=== PATIENT | female | born 1980 | race Caucasian/White ===

== ENCOUNTER 2024-06-13 23:32 | Inpatient (IN) | payer SELFPAY ==
--- NOTE | ~2024-06-13 | XR_ITS ---
Left Knee Technique: AP, lateral, and oblique views were obtained. Clinical History: Laceration, dog bite Findings: No fracture or dislocation is seen. Bipartite patella noted. Joint spaces are preserved wit hout degenerative or erosive change. There is soft tissue laceration the posterior aspect of the knee . No joint effusion is seen. Impression: Soft tissue laceration of the posterior aspect of the knee. Bipartite patella. Reviewed, dictated and finalized at location M. 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 Bipartite patella.
--- NOTE | ~2024-06-13 | CT_ITS ---
EXAMINATION: CT LE LT w con DATE: 06/15/2024 08:46 INDICATION: Left lower limb laceration with infection. TECHNIQUE: Computed tomography (CT) of the left lower limb was performed with 100 mL Omnipaque 350 in travenous contrast. Automated exposure control and iterative reconstruction technique were employed. The dose-length product was 718.91 mGy-cm. COMPARISON: Left knee radiographs 06/14/2024 FINDINGS: Bone alignment is normal. No fracture. 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 No knee joint effusion. There is a laceration posterior to the knee. T here is edema of the surrounding subcutaneous fat. No drainable abscess. IMPRESSION: 1. Laceration posterior to the knee with associated soft tissue edema. No well-defined abscess. Reviewed, dictated and finalized at location A. IN ARCHITECT IMPRESSION: 1. Laceration posterior to the knee with associated soft tissue edema. No well- defined abscess.
[2024-06-13 23:35] VITALS: BP 155/91; PULSE 84; RESP 16; TEMP 36.3; O2SAT 100
[2024-06-14] MEDS: AMPICILLIN SULB 3 GM/NS 100 ML 3 GM/100 ML VIAL IVPB ×3 (03:20→17:03)
[2024-06-14] MEDS: TETANUS,DIPHTHERIA,AC PERTUSSIS ADULT (0.5 ML) BOOSTRIX IM (03:21)
--- NOTE | 2024-06-14 03:26 | ED_ITS ---
HPI - General Adult General Chief complaint: Animal Bite Stated complaint: dog bite to back of L leg Time Seen by Provider: 06/14/24 02:49 History of Present Illness HPI narrative: Patient is a 43-year-old female presents emergency department chief complaint of dog bite to the left leg. Patient reports several days ago she was bitten by a dog and reports he has laceration to the back of her Related Data Allergies Allergy/AdvReac Type Severity Reaction Status Date / Time No Known Allergies Allergy Verified 06/13/24 23:34 Review of Systems Review of Systems: A 10 system review of systems was completed on the patient and is negative except for what is stated in the HPI. Nursing and ancillary documentation was reviewed. Exam Narrative: GENERAL: Well-appearing, well-nourished, and in no acute distress. HEAD: Normocephalic, atraumatic. EYES: PERRLA and EOMI. ENT: Nares clear, no rhinorrhea or epistaxis. Mucous membranes moist. NECK: Supple. CHEST: Clear to auscultation. No respiratory distress. HEART: Regular rate and rhythm. No murmur heard. Normal peripheral pulses. ABDOMEN: Soft, nontender, nondistended, normal active bowel sounds. EXTREMITIES: Normal range of motion. No edema. There is a large laceration to the left calf with erythema surrounding the wound appears to be infected SKIN: Warm, dry, no rash. NEURO: No focal deficits. Alert and oriented x3. PSYCH: Normal mood and affect. Course Vital Signs Vital signs: Vital Signs Temperature 36.3 C L 06/13/24 23:35 Pulse Rate 84 06/13/24 23:35 Respiratory Rate 16 06/13/24 23:35 Blood Pressure 155/91 H 06/13/24 23:35 Pulse Oximetry 100 06/13/24 23:35 Oxygen Delivery Room Air 06/13/24 23:35 Temperature 36.3 C L 06/13/24 23:35 Pulse Rate 84 06/13/24 23:35 Respiratory Rate 16 06/13/24 23:35 Blood Pressure 155/91 H 06/13/24 23:35 Pulse Oximetry 100 06/13/24 23:35 Oxygen Delivery Room Air 06/13/24 23:35 Medical Decision Making [facility] Narrative Medical decision making narrative: Plain film x-rays showed no evidence of fracture, CBC was not significantly elevated given the wound does appear to be significantly infected the patient was started empirically on Unasyn to provide coverage for canine bite. Case was discussed with the hospitalist the patient will be admitted for further care Vital Signs Vital Signs: Vital Signs Temperature 36.3 C L 06/13/24 23:35 Pulse Rate 84 06/13/24 23:35 Respiratory Rate 16 06/13/24 23:35 Blood Pressure 155/91 H 06/13/24 23:35 Pulse Oximetry 100 06/13/24 23:35 Oxygen Delivery Room Air 06/13/24 23:35 Temperature 36.3 C L 06/13/24 23:35 Pulse Rate 84 06/13/24 23:35 Respiratory Rate 16 06/13/24 23:35 Blood Pressure 155/91 H 06/13/24 23:35 Pulse Oximetry 100 06/13/24 23:35 Oxygen Delivery Room Air 06/13/24 23:35 Lab Data 06/14/24 03:22 06/14/24 03:22 Labs: Lab Results 06/14/24 Range/Units 03:22 WBC 7.5 (4.5-10.0) K/mm3 RBC 3.69 L (4.2-5.4) M/mm3 Hgb 11.1 L (12.0-15.0) g/dL Hct 33.7 L (37.0-47.0) % MCV 91.3 (80-100) fl MCH 30.1 (26-34) pg MCHC 32.9 (32-36) g/dl RDW 13.0 (11.5-14.5) % Plt Count 357 (150-375) k/mm3 MPV 8.5 (7.4-10.4) fl Immature Gran % (Auto) 0.3 (0-0.5) % Neut % (Auto) 52.4 (45.5-73.1) % Lymph % (Auto) 36.3 (18.3-44.2) % [place] % (Auto) 6.9 (2.6-8.5) % Eos % (Auto) 3.7 (0-4.4) % Baso % (Auto) 0.4 (0.2-1.2) % Lymph # (Auto) 2.73 (0.9-3.2) K/mm3 [place] # (Auto) 0.5 (0.1-0.6) K/mm3 Eos # (Auto) 0.3 (0-0.3) K/mm3 Baso # (Auto) 0.0 (0.0-0.1) K/mm3 Abs Immat Gran (auto) 0.02 (0.00-0.031) K/mm3 Absolute Neuts (auto) 3.9 (1.3-6.7) K/mm3 Absolute Nucleated RBC 0.000 (0.0-0.012) K/mm3 Nucleated RBC % 0.0 (0.0-0.2) % Sodium 137 (137-145) mmol/L Potassium 3.6 (3.4-5.0) mmol/L Chloride 106 (98-107) mmol/L Carbon Dioxide 29 (22-30) mmol/L Anion Gap 2 L (4-12) mmol/L BUN 8 (7-17) mg/dL Creatinine 0.40 L (0.7-1.0) mg/dL Estim Creat Clear Calc 143 ml/min Estimated GFR > 60 (59 - ) Glucose 113 H (65-110) mg/dL Lactic Acid 0.6 L (0.7-2.0) mmol/L Calcium 8.9 (8.4-10.2) mg/dL Total Bilirubin 0.5 (0.2-1.3) mg/dL AST 46 H (14-36) U/L ALT 40 H (6-35) U/L Alkaline Phosphatase 76 (38-126) U/L Total Protein 7.0 (6.3-8.2) g/dL Albumin 3.5 (3.5-5.1) g/dL Discharge Plan Discharge Clinical Impression: Dog bite of left lower leg with infection, History of homeless Patient Disposition: Still a Patient Condition: Stable Follow-up/Referrals: PHYSICIAN,CARROT BUNCHER [Primary Care Provider] - Time of Disposition: 04:11
[2024-06-14 03:32] LABS: Basophils Percent Auto 0.4 % (0.2-1.2); Eosinophils Absolute Auto 0.3 K/mm3 (0-0.3); Eosinophils Percent Auto 3.7 % (0-4.4); Hematocrit 33.7 % (37.0-47.0); Hemoglobin 11.1 g/dL (12.0-15.0); Immature Granulocyte Absolute 0.02 K/mm3 (0.00-0.031); Immature Granulocyte Percent A 0.3 % (0-0.5); Lymphocytes Absolute Auto 2.73 K/mm3 (0.9-3.2); Lymphocytes Percent Auto 36.3 % (18.3-44.2); Mean Corpuscular HGB Conc 32.9 g/dl (32-36); Mean Corpuscular Hemoglobin 30.1 pg (26-34); Mean Corpuscular Volume 91.3 fl (80-100); Mean Platelet Volume 8.5 fl (7.4-10.4); Monocytes Absolute Auto 0.5 K/mm3 (0.1-0.6); Monocytes Percent Auto 6.9 % (2.6-8.5); Neutrophils Absolute Auto 3.9 K/mm3 (1.3-6.7); Neutrophils Percent Auto 52.4 % (45.5-73.1); Platelet Count Result 357 k/mm3 (150-375); Red Blood Count 3.69 M/mm3 (4.2-5.4); White Blood Count 7.5 K/mm3 (4.5-10.0)
[2024-06-14 03:51] LABS: Alanine Aminotransferase 40 U/L (6-35); Albumin Level 3.5 g/dL (3.5-5.1); Alkaline Phosphatase 76 U/L (38-126); Anion Gap 2 mmol/L (4-12); Aspartate Amino Transferase 46 U/L (14-36); Bilirubin,Total 0.5 mg/dL (0.2-1.3); Blood Urea Nitrogen 8 mg/dL (7-17); Calcium 8.9 mg/dL (8.4-10.2); Carbon Dioxide 29 mmol/L (22-30); Chloride 106 mmol/L (98-107); Estimated CRCL calculation 143 ml/min; Estimated Glomerular Filt Rate > 60; Glucose 113 mg/dL (65-110); Potassium 3.6 mmol/L (3.4-5.0); Sodium 137 mmol/L (137-145)
[2024-06-14 03:52] LABS: Lactic Acid Reflex 0.6 mmol/L (0.7-2.0)
[2024-06-14 04:22] VITALS: BP 142/81; PULSE 80; RESP 14; O2SAT 97
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
[2024-06-14] MEDS: ACETAMINOPHEN 325 MG TABLET 650 MG PO ×2 (05:42→22:48)
--- NOTE | 2024-06-14 05:43 | PC.NURSE ---
Patient is homeless and states that she is supposed to take medication for certain health conditions but I just can't right now ; patient states she was told that she had cancer from some test, but I don't know . Admission report provided to [facility].
[2024-06-14 06:00] VITALS: BP 120/68; PULSE 85; RESP 18; TEMP 36.6; O2SAT 100
[2024-06-14] MEDS: SODIUM CHLORIDE 0.9% IV 1,000 ML 100 ML IV CONT ×2 (06:25→21:24)
[2024-06-14] MEDS: KETOROLAC 15 MG/ML VIAL (*BKC) IV PUSH ×3 (06:25→17:01)
[2024-06-14] MEDS: VANCOMYCIN 1,500 MG/NS 500 ML 1,500 MG/500 ML BAG 250 MG IVPB ×2 (07:22→21:29)
[2024-06-14 08:12] VITALS: O2SAT 96
[2024-06-14] MEDS: HEPARIN SODIUM 5,000 UNITS/ML VIAL 5000 UNITS SUB-Q ×2 (08:16→21:32)
--- NOTE | 2024-06-14 11:30 | P.PNIM_ITS ---
Progress Note: A&P Assessment and Plan (1) Dog bite of left lower leg with infection: Code(s): S81.852A - Open bite, left lower leg, initial encounter; L08.9 - Local infection of the skin and subcutaneous tissue, unspecified; W54.0XXA - Bitten by dog, initial encounter Status: Acute Assessment and Plan: * Ampicillin 3 gram IVPB q 6 and Vancomycin 1,500 mg IVPB q 12 * NS @ 100 ml/hr * Surgery consult. CT of left LE with contrast ordered and NPO after Midnight. * Monitor labs * Blood culture no growth to date. * TDAP booster (2) Cellulitis of left lower extremity: Code(s): L03.116 - Cellulitis of left lower limb Status: Acute Assessment and Plan: * Ampicillin 3 gram IVPB q 6 and Vancomycin 1,500 mg IVPB q 12 * NS @ 100 ml/hr * Surgery consult. CT of left LE with contrast ordered and NPO after Midnight. * Monitor labs (3) Homeless: Code(s): Z59.00 - Homelessness unspecified Status: Acute Assessment and Plan: * Care coordination consult. Plan Acute and principal conditions 1. Left lower extremity cellulitis, post-dog bite 2. Dog bite 3. Elevated liver enzymes IVFs; Unasyn, Vancomycin Analgesia Tetanus booster General surgery consult Monitor liver function; Avoid hepatotoxins Chronic and stable conditions 1. Polysubstance dependence 2. Nicotine dependence. 3. Alcohol dependence 4. Hx of depression w/Anxiety. Poor compliance due to social issues Code status. Full Nutrition. Regular diet VTE prophylaxis. SCDs; JULIANO Subjective Date/time seen: 06/14/24 11:30 Interval history: Patient reports pain in left calf is a 5 , constant, and throbbing. Patient denies headache, dizziness, nausea, or vomiting. Review of Systems Review of Systems: All systems reviewed & are unremarkable except as noted in HPI and below Exam Const: General: no acute distress and uncomfortable Eyes: Sclera: sclerae normal Resp: Effort & Inspection: normal respiratory effort Auscultation: clear to auscultation bilaterally Cardio: Rate: regular rate Rhythm: regular rhythm GI: GI Palp: Yes Soft to palpation Auscultation: normal bowel sounds Skin: Wounds: wounds noted (left calf. ) Other: See wound note for measurements. Surgery description. Cloudy scant purulent drainage on dressing. Neuro: Speech: normal speech Extrem: Other: Grossly normal except for left calf cellulitis Psych: Mental Status: mental status grossly normal Affect: normal affect Objective Data Vital Signs Vital Signs: Vital Signs - 24 hr 06/13/24 23:35 06/14/24 04:22 06/14/24 06:00 Temperature 97.3 F L 97.9 F Pulse Rate 84 80 85 Respiratory Rate 16 14 18 Blood Pressure 155/91 H 142/81 H 120/68 Pulse Oximetry 100 97 100 Oxygen Delivery Room Air 06/14/24 08:12 06/14/24 08:00 Temperature Pulse Rate Respiratory Rate Blood Pressure Pulse Oximetry 96 Oxygen Delivery Room Air Room Air Intake/Output Intake/Output: Intake & Output 06/11/24 06/12/24 06/13/24 06/14/24 23:59 23:59 23:59 23:59 Intake Total 318 Balance 318 Meds/Results Medications: Active Medications Generic Name Dose Route Start Last Admin Trade Name Freq PRN Reason Stop Dose Admin Acetaminophen 650 mg 06/14/24 04:09 06/14/24 05:42 Acetaminophen 325 Mg Tablet PO 650 mg Q4H PRN Administration Mild Pain (1-3) or Fever Heparin Sodium (Porcine) 5,000 units 06/14/24 09:00 06/14/24 08:16 Heparin Sodium 5,000 Units/Ml Vial SUB-Q 5,000 units Q12HR JULIANO Administration Ampicillin Sodium/Sulbactam Sodium 3 gm in 100 mls @ 200 mls/hr 06/14/24 12:00 Unasyn 3 Gm/Ns 100 Ml IVPB Q6HR JULIANO Sodium Chloride 1,000 mls @ 100 mls/hr 06/14/24 05:25 06/14/24 06:25 Normal Saline Iv IV CONT 100 mls/hr .Q10H JULIANO Administration Vancomycin HCl 1,500 mg in 500 mls @ 250 mls/hr 06/14/24 07:00 06/14/24 07:22 Vancomycin 1,500 Mg/Ns 500 Ml IVPB 250 mls/hr Q12H JULIANO Administration Ketorolac Tromethamine 15 mg 06/14/24 06:00 06/14/24 06:25 Ketorolac 15 Mg/Ml Vial (*Bkc) IV PUSH 06/14/24 18:01 15 mg Q6HR JULIANO Administration Radiology Results: ITS Impressions Knee X-Ray 06/14/24 07:41 Impression: Soft tissue laceration of the posterior aspect of the knee. Bipartite patella. Labs Labs: Laboratory Results - last 24 hr 06/14/24 03:22 WBC 7.5 RBC 3.69 L Hgb 11.1 L Hct 33.7 L MCV 91.3 MCH 30.1 MCHC 32.9 RDW 13.0 Plt Count 357 MPV 8.5 Immature Gran % (Auto) 0.3 Neut % (Auto) 52.4 Lymph % (Auto) 36.3 [place] % (Auto) 6.9 Eos % (Auto) 3.7 Baso % (Auto) 0.4 Lymph # (Auto) 2.73 [place] # (Auto) 0.5 Eos # (Auto) 0.3 Baso # (Auto) 0.0 Abs Immat Gran (auto) 0.02 Absolute Neuts (auto) 3.9 Absolute Nucleated RBC 0.000 Nucleated RBC % 0.0 Sodium 137 Potassium 3.6 Chloride 106 Carbon Dioxide 29 Anion Gap 2 L BUN 8 Creatinine 0.40 L Estim Creat Clear Calc 143 Estimated GFR > 60 Glucose 113 H Lactic Acid 0.6 L Calcium 8.9 Total Bilirubin 0.5 AST 46 H ALT 40 H Alkaline Phosphatase 76 Total Protein 7.0 Albumin 3.5 Quality VTE Prophylaxis VTE prophylaxis: mechanical ordered and pharmacologic ordered
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
[2024-06-14 14:00] VITALS: BP 122/69; PULSE 78; RESP 18; TEMP 36.4; O2SAT 99
[2024-06-14 20:00] VITALS: O2SAT 99
[2024-06-14 20:46] LABS: Glucose Point of Care 106 mg/dl (65-105)
[2024-06-14 21:29] VITALS: BP 123/74; PULSE 72; RESP 14; TEMP 36.7; O2SAT 100
[2024-06-15] MEDS: AMPICILLIN SULB 3 GM/NS 100 ML 3 GM/100 ML VIAL IVPB ×5 (01:12→23:40)
[2024-06-15] MEDS: ACETAMINOPHEN 325 MG TABLET 650 MG PO ×4 (03:20→21:29)
[2024-06-15 05:22] VITALS: BP 124/73; PULSE 62; RESP 13; TEMP 36.8; O2SAT 100
[2024-06-15 07:37] LABS: Basophils Percent Auto 0.5 % (0.2-1.2); Eosinophils Absolute Auto 0.2 K/mm3 (0-0.3); Eosinophils Percent Auto 3.2 % (0-4.4); Hematocrit 33.4 % (37.0-47.0); Hemoglobin 10.3 g/dL (12.0-15.0); Immature Granulocyte Absolute 0.02 K/mm3 (0.00-0.031); Immature Granulocyte Percent A 0.3 % (0-0.5); Lymphocytes Absolute Auto 2.35 K/mm3 (0.9-3.2); Lymphocytes Percent Auto 31.5 % (18.3-44.2); Mean Corpuscular HGB Conc 30.8 g/dl (32-36); Mean Corpuscular Hemoglobin 29.1 pg (26-34); Mean Corpuscular Volume 94.4 fl (80-100); Monocytes Absolute Auto 0.7 K/mm3 (0.1-0.6); Monocytes Percent Auto 9.4 % (2.6-8.5); Neutrophils Absolute Auto 4.1 K/mm3 (1.3-6.7); Neutrophils Percent Auto 55.1 % (45.5-73.1); Platelet Count Result 308 k/mm3 (150-375); Red Blood Count 3.54 M/mm3 (4.2-5.4); Red Cell Distribution Width 13.1 % (11.5-14.5); White Blood Count 7.5 K/mm3 (4.5-10.0)
[2024-06-15 08:43] LABS: Alanine Aminotransferase 33 U/L (6-35); Albumin Level 2.9 g/dL (3.5-5.1); Alkaline Phosphatase 67 U/L (38-126); Anion Gap 2 mmol/L (4-12); Aspartate Amino Transferase 39 U/L (14-36); Bilirubin,Total 0.5 mg/dL (0.2-1.3); Blood Urea Nitrogen 8 mg/dL (7-17); Calcium 8.1 mg/dL (8.4-10.2); Carbon Dioxide 26 mmol/L (22-30); Chloride 109 mmol/L (98-107); Estimated CRCL calculation 118 ml/min; Estimated Glomerular Filt Rate > 60; Glucose 105 mg/dL (65-110); Sodium 137 mmol/L (137-145)
[2024-06-15] MEDS: VANCOMYCIN 1,500 MG/NS 500 ML 1,500 MG/500 ML BAG 250 MG IVPB ×2 (09:14→21:21)
[2024-06-15] MEDS: HEPARIN SODIUM 5,000 UNITS/ML VIAL 5000 UNITS SUB-Q ×2 (09:14→21:25)
--- NOTE | 2024-06-15 12:14 | P.PNIM_ITS ---
Progress Note: A&P Assessment and Plan (1) Dog bite of left lower leg with infection: Code(s): S81.852A - Open bite, left lower leg, initial encounter; L08.9 - Local infection of the skin and subcutaneous tissue, unspecified; W54.0XXA - Bitten by dog, initial encounter Status: Acute Assessment and Plan: * Ampicillin 3 gram IVPB q 6 and Vancomycin 1,500 mg IVPB q 12 * NS @ 100 ml/hr * Surgery consult. * CT of left LE with contrast showed Laceration posterior to the knee with associated soft tissue edema. No well-defined abscess. * Surgery cleaned and packed wound. * Monitor labs * Blood culture no growth to date. * TDAP booster (2) Cellulitis of left lower extremity: Code(s): L03.116 - Cellulitis of left lower limb Status: Acute Assessment and Plan: * Ampicillin 3 gram IVPB q 6 and Vancomycin 1,500 mg IVPB q 12 * NS @ 100 ml/hr * Surgery consulted. * CT of left LE with contrast ordered Laceration posterior to the knee with associated soft tissue edema. No well-defined abscess. * Monitor labs (3) Homeless: Code(s): Z59.00 - Homelessness unspecified Status: Acute Assessment and Plan: * Care coordination consult. Plan Acute and principal conditions 1. Left lower extremity cellulitis, post-dog bite 2. Dog bite 3. Elevated liver enzymes IVFs; Unasyn, Vancomycin Analgesia Tetanus booster General surgery consult Monitor liver function; Avoid hepatotoxins Chronic and stable conditions 1. Polysubstance dependence 2. Nicotine dependence. 3. Alcohol dependence 4. Hx of depression w/Anxiety. Poor compliance due to social issues Code status. Full Nutrition. Regular diet VTE prophylaxis. SCDs; JULIANO Subjective Date/time seen: 06/15/24 12:14 Interval history: Patient reports pain in left calf is a 9 , constant, and aching. Patient reports that she considering going to a womens intermediate. Patient denies chest pain, palpitations, headache, dizziness, nausea, or vomiting. Patient denies thoughts of wanting to harm herself or harm others. Review of Systems Review of Systems: All systems reviewed & are unremarkable except as noted in HPI and below Exam Const: General: no acute distress and uncomfortable Eyes: Sclera: sclerae normal Resp: Effort & Inspection: normal respiratory effort Auscultation: clear to auscultation bilaterally Cardio: Rate: regular rate Rhythm: regular rhythm GI: GI Palp: Yes Soft to palpation Auscultation: normal bowel sounds Skin: Wounds: wounds noted (Dressing intact to left calf. Surgery packed and placed dressing. ) Neuro: Speech: normal speech Extrem: Other: Grossly normal except for left calf cellulitis Psych: Mental Status: mental status grossly normal Other: Tearful when talked about family and unsure whert they are at. Objective Data Vital Signs Vital Signs: Vital Signs - 24 hr 06/14/24 14:00 06/14/24 21:29 06/14/24 20:00 Temperature 97.6 F 98.0 F Pulse Rate 78 72 Respiratory Rate 18 14 Blood Pressure 122/69 123/74 Pulse Oximetry 99 100 Oxygen Delivery Room Air 06/14/24 20:00 06/15/24 05:22 06/15/24 08:00 Temperature 98.2 F Pulse Rate 62 Respiratory Rate 13 Blood Pressure 124/73 Pulse Oximetry 99 100 Oxygen Delivery Room Air Room Air Intake/Output Intake/Output: Intake & Output 06/12/24 06/13/24 06/14/24 06/15/24 23:59 23:59 23:59 23:59 Intake Total 3526 1050 Balance 3526 1050 Meds/Results Medications: Active Medications Generic Name Dose Route Start Last Admin Trade Name Freq PRN Reason Stop Dose Admin Acetaminophen 650 mg 06/14/24 04:09 06/15/24 10:22 Acetaminophen 325 Mg Tablet PO 650 mg Q4H PRN Administration Mild Pain (1-3) or Fever Heparin Sodium (Porcine) 5,000 units 06/14/24 09:00 06/15/24 09:14 Heparin Sodium 5,000 Units/Ml Vial SUB-Q 5,000 units Q12HR JULIANO Administration Ampicillin Sodium/Sulbactam Sodium 3 gm in 100 mls @ 200 mls/hr 06/14/24 12:00 06/15/24 06:41 Unasyn 3 Gm/Ns 100 Ml IVPB Infused Q6HR JULIANO Infusion Sodium Chloride 1,000 mls @ 100 mls/hr 06/14/24 05:25 06/14/24 21:24 Normal Saline Iv IV CONT 100 mls/hr .Q10H JULIANO Administration Vancomycin HCl 1,500 mg in 500 mls @ 250 mls/hr 06/14/24 07:00 06/15/24 09:14 Vancomycin 1,500 Mg/Ns 500 Ml IVPB 250 mls/hr Q12H JULIANO Administration Radiology Results: ITS Impressions Knee X-Ray 06/14/24 07:41 Impression: Soft tissue laceration of the posterior aspect of the knee. Bipartite patella. Lower Extremity CT 06/15/24 08:47 IMPRESSION: 1. Laceration posterior to the knee with associated soft tissue edema. No well- defined abscess. Labs Labs: Laboratory Results - last 24 hr 06/14/24 06/15/24 20:42 06:55 WBC 7.5 RBC 3.54 L Hgb 10.3 L Hct 33.4 L MCV 94.4 MCH 29.1 MCHC 30.8 L RDW 13.1 Plt Count 308 MPV 9.0 Immature Gran % (Auto) 0.3 Neut % (Auto) 55.1 Lymph % (Auto) 31.5 [place] % (Auto) 9.4 H Eos % (Auto) 3.2 Baso % (Auto) 0.5 Lymph # (Auto) 2.35 [place] # (Auto) 0.7 H Eos # (Auto) 0.2 Baso # (Auto) 0.0 Abs Immat Gran (auto) 0.02 Absolute Neuts (auto) 4.1 Absolute Nucleated RBC 0.000 Nucleated RBC % 0.0 Sodium 137 Potassium 4.0 Chloride 109 H Carbon Dioxide 26 Anion Gap 2 L BUN 8 Creatinine 0.50 L Estim Creat Clear Calc 118 Estimated GFR > 60 Glucose 105 POC Capillary Glucose 106 H Calcium 8.1 L Total Bilirubin 0.5 AST 39 H ALT 33 Alkaline Phosphatase 67 Total Protein 6.0 L Albumin 2.9 L Quality VTE Prophylaxis VTE prophylaxis: mechanical ordered and pharmacologic ordered
[2024-06-15 14:00] VITALS: BP 134/73; PULSE 90; RESP 18; TEMP 36.1; O2SAT 100
--- NOTE | 2024-06-15 14:06 | PM.PNGS ---
Progress Note: A&P Assessment and Plan (1) Dog bite of left lower leg with infection: Code(s): S81.852A - Open bite, left lower leg, initial encounter; L08.9 - Local infection of the skin and subcutaneous tissue, unspecified; W54.0XXA - Bitten by dog, initial encounter Status: Acute Assessment and Plan: Patient was bit by a dog nearly a week ago and now has an open wound in the popliteal fossa of her left knee with soft tissue changes of cellulitis and infection. CT scan of LLE showed no evidence of a defined abscess that would require surgical intervention. We would recommend to continue local wound care with iodoform packing dressing changes daily and IV antibiotics. Given her social situation of homelessness and lack of social support, wound care as an outpatient may become an issue. She may need an extended stay until it was clear that she can care for her own wounds. We will sign off at this time. Please call with any surgical questions or concerns. (2) Polysubstance abuse: Code(s): F19.10 - Other psychoactive substance abuse, uncomplicated Status: Chronic (3) Tobacco dependence: Code(s): F17.200 - Nicotine dependence, unspecified, uncomplicated Status: Chronic (4) History of homeless: Code(s): Z78.9 - Other specified health status Status: Acute Plan I have discussed the patient's case and plan of care with Dr. Arizmendi. Subjective Subjective Date/Time Seen: 06/15/24 14:06 Patient reports: no new complaints, feels better, pain is less and afebrile Interval history: Patient feels like her left leg swelling and pain has improved. No acute events overnight. No changes. CT today negative for abscess. I tried questioning the patient about her personal life and if she would have any family or friends around to help her with packing dressing changes. She could not answer this question directly and first said no I don't have anyone. Then I asked where her parents are and she answered I need to get a mechanical repair worker. I asked if she had a place that she was staying recently and she couldn't answer this either. She replied by saying everyone wants my information and is using it against me. She could not directly answer me with any questions in regards to if she has any social support to help her with dressing changes/etc. I spoke with nursing who stated that care coordination is recommending a psych consult and they were speaking with the Hospitalist about this. Exam Const: General: comfortable and no acute distress Orientation/consciousness: patient oriented x3 Skin: Other: There is a linear wound in the popliteal fossa of the left leg with thick yellow drainage on the mepilex dressing and still about 5 cm of tunneling down towards the calf. CT did not show a deeper abscess. Surrounding erythema and swelling is improving. I packed the wound with quarter-inch iodoform and covered with 4 x 4 gauze and a Kerlix roll gauze. Objective Data Vital Signs Vital Signs: Vital Signs - 24 hr 06/14/24 21:29 06/14/24 20:00 06/14/24 20:00 Temperature 98.0 F Pulse Rate 72 Respiratory Rate 14 Blood Pressure 123/74 Pulse Oximetry 100 99 Oxygen Delivery Room Air Room Air 06/15/24 05:22 06/15/24 08:00 Temperature 98.2 F Pulse Rate 62 Respiratory Rate 13 Blood Pressure 124/73 Pulse Oximetry 100 Oxygen Delivery Room Air Intake/Output Intake/Output: Intake & Output 06/12/24 06/13/24 06/14/24 06/15/24 23:59 23:59 23:59 23:59 Intake Total 3526 1050 Balance 3526 1050 Meds/Results Medications: Active Medications Generic Name Dose Route Start Last Admin Trade Name Freq PRN Reason Stop Dose Admin Acetaminophen 650 mg 06/14/24 04:09 06/15/24 10:22 Acetaminophen 325 Mg Tablet PO 650 mg Q4H PRN Administration Mild Pain (1-3) or Fever Heparin Sodium (Porcine) 5,000 units 06/14/24 09:00 06/15/24 09:14 Heparin Sodium 5,000 Units/Ml Vial SUB-Q 5,000 units Q12HR JULIANO Administration Ampicillin Sodium/Sulbactam Sodium 3 gm in 100 mls @ 200 mls/hr 06/14/24 12:00 06/15/24 12:29 Unasyn 3 Gm/Ns 100 Ml IVPB 200 mls/hr Q6HR JULIANO Administration Sodium Chloride 1,000 mls @ 100 mls/hr 06/14/24 05:25 06/14/24 21:24 Normal Saline Iv IV CONT 100 mls/hr .Q10H JULIANO Administration Vancomycin HCl 1,500 mg in 500 mls @ 250 mls/hr 06/14/24 07:00 06/15/24 09:14 Vancomycin 1,500 Mg/Ns 500 Ml IVPB 250 mls/hr Q12H JULIANO Administration Radiology Results: ITS Impressions Knee X-Ray 06/14/24 07:41 Impression: Soft tissue laceration of the posterior aspect of the knee. Bipartite patella. Lower Extremity CT 06/15/24 08:47 IMPRESSION: 1. Laceration posterior to the knee with associated soft tissue edema. No well-defined abscess. Labs Labs: Laboratory Results - last 24 hr 06/14/24 06/15/24 20:42 06:55 WBC 7.5 RBC 3.54 L Hgb 10.3 L Hct 33.4 L MCV 94.4 MCH 29.1 MCHC 30.8 L RDW 13.1 Plt Count 308 MPV 9.0 Immature Gran % (Auto) 0.3 Neut % (Auto) 55.1 Lymph % (Auto) 31.5 [place] % (Auto) 9.4 H Eos % (Auto) 3.2 Baso % (Auto) 0.5 Lymph # (Auto) 2.35 [place] # (Auto) 0.7 H Eos # (Auto) 0.2 Baso # (Auto) 0.0 Abs Immat Gran (auto) 0.02 Absolute Neuts (auto) 4.1 Absolute Nucleated RBC 0.000 Nucleated RBC % 0.0 Sodium 137 Potassium 4.0 Chloride 109 H Carbon Dioxide 26 Anion Gap 2 L BUN 8 Creatinine 0.50 L Estim Creat Clear Calc 118 Estimated GFR > 60 Glucose 105 POC Capillary Glucose 106 H Calcium 8.1 L Total Bilirubin 0.5 AST 39 H ALT 33 Alkaline Phosphatase 67 Total Protein 6.0 L Albumin 2.9 L
[2024-06-15] MEDS: SODIUM CHLORIDE 0.9% IV 1,000 ML 100 ML IV CONT ×2 (16:26→18:51)
[2024-06-15 20:54] LABS: Vancomycin Trough 9.8 ug/mL (10.0-20.0)
[2024-06-15 21:25] VITALS: BP 138/67; PULSE 84; RESP 20; TEMP 36.9; O2SAT 100
[2024-06-15] MEDS: KETOROLAC 30 MG/ML VIAL (*BKC) IV PUSH (22:47)
[2024-06-16 04:25] VITALS: BP 141/82; PULSE 76; RESP 20; TEMP 37; O2SAT 100
[2024-06-16] MEDS: AMPICILLIN SULB 3 GM/NS 100 ML 3 GM/100 ML VIAL IVPB ×4 (05:13→23:50)
[2024-06-16] MEDS: ACETAMINOPHEN 325 MG TABLET 650 MG PO ×3 (05:52→21:41)
[2024-06-16 06:07] LABS: Basophils Percent Auto 0.4 % (0.2-1.2); Eosinophils Absolute Auto 0.3 K/mm3 (0-0.3); Eosinophils Percent Auto 3.3 % (0-4.4); Hematocrit 33.8 % (37.0-47.0); Hemoglobin 10.5 g/dL (12.0-15.0); Immature Granulocyte Absolute 0.03 K/mm3 (0.00-0.031); Immature Granulocyte Percent A 0.4 % (0-0.5); Lymphocytes Absolute Auto 2.58 K/mm3 (0.9-3.2); Lymphocytes Percent Auto 33.9 % (18.3-44.2); Mean Corpuscular HGB Conc 31.1 g/dl (32-36); Mean Corpuscular Hemoglobin 29.5 pg (26-34); Mean Corpuscular Volume 94.9 fl (80-100); Mean Platelet Volume 8.6 fl (7.4-10.4); Monocytes Absolute Auto 0.7 K/mm3 (0.1-0.6); Monocytes Percent Auto 8.8 % (2.6-8.5); Neutrophils Absolute Auto 4.1 K/mm3 (1.3-6.7); Neutrophils Percent Auto 53.2 % (45.5-73.1); Platelet Count Result 308 k/mm3 (150-375); Red Blood Count 3.56 M/mm3 (4.2-5.4); Red Cell Distribution Width 12.8 % (11.5-14.5); White Blood Count 7.6 K/mm3 (4.5-10.0)
[2024-06-16 06:31] LABS: Alanine Aminotransferase 34 U/L (6-35); Albumin Level 2.9 g/dL (3.5-5.1); Alkaline Phosphatase 67 U/L (38-126); Anion Gap 0 mmol/L (4-12); Aspartate Amino Transferase 39 U/L (14-36); Bilirubin,Total 0.3 mg/dL (0.2-1.3); Blood Urea Nitrogen 11 mg/dL (7-17); Calcium 8.3 mg/dL (8.4-10.2); Carbon Dioxide 28 mmol/L (22-30); Chloride 107 mmol/L (98-107); Estimated CRCL calculation 118 ml/min; Estimated Glomerular Filt Rate > 60; Glucose 100 mg/dL (65-110); Potassium 4.3 mmol/L (3.4-5.0); Sodium 135 mmol/L (137-145)
[2024-06-16] MEDS: VANCOMYCIN 1,500 MG/NS 500 ML 1,500 MG/500 ML BAG 250 MG IVPB ×2 (08:56→21:38)
[2024-06-16] MEDS: HEPARIN SODIUM 5,000 UNITS/ML VIAL 5000 UNITS SUB-Q ×2 (09:21→21:40)
--- NOTE | 2024-06-16 10:49 | P.PNIM_ITS ---
Progress Note: A&P Assessment and Plan (1) Dog bite of left lower leg with infection: Code(s): S81.852A - Open bite, left lower leg, initial encounter; L08.9 - Local infection of the skin and subcutaneous tissue, unspecified; W54.0XXA - Bitten by dog, initial encounter Status: Acute Assessment and Plan: * Ampicillin 3 gram IVPB q 6 and Vancomycin 1,500 mg IVPB q 12 * NS @ 100 ml/hr * Surgery consulted, no surgical intervention at this time. * CT of left LE with contrast showed Laceration posterior to the knee with associated soft tissue edema. No well-defined abscess. * Dressing changes packed the wound with quarter-inch iodoform and covered with 4 x 4 gauze and a Kerlix roll gauze. * Monitor labs * Blood culture no growth to date. * TDAP booster (2) Cellulitis of left lower extremity: Code(s): L03.116 - Cellulitis of left lower limb Status: Acute Assessment and Plan: * Ampicillin 3 gram IVPB q 6 and Vancomycin 1,500 mg IVPB q 12 * NS @ 100 ml/hr * Surgery consulted. * CT of left LE with contrast ordered Laceration posterior to the knee with associated soft tissue edema. No well-defined abscess. * Monitor labs (3) Homeless: Code(s): Z59.00 - Homelessness unspecified Status: Acute Assessment and Plan: * Care coordination consult. Plan Acute and principal conditions 1. Left lower extremity cellulitis, post-dog bite 2. Dog bite 3. Elevated liver enzymes IVFs; Unasyn, Vancomycin Analgesia Tetanus booster General surgery consult Monitor liver function; Avoid hepatotoxins Chronic and stable conditions 1. Polysubstance dependence 2. Nicotine dependence. 3. Alcohol dependence 4. Hx of depression w/Anxiety. Poor compliance due to social issues Code status. Full Nutrition. Regular diet VTE prophylaxis. SCDs; JULIANO Subjective Date/time seen: 06/16/24 10:49 Interval history: Patient reports pain in left calf is a 9 , constant, and aching. Patient reports that she considering going to a women's snf, patient has phone numbers at bedside to call and set up. Patient denies chest pain, palpitations, headache, dizziness, nausea, or vomiting. Review of Systems Review of Systems: All systems reviewed & are unremarkable except as noted in HPI and below Exam Const: General: no acute distress and uncomfortable Eyes: Sclera: sclerae normal Resp: Effort & Inspection: normal respiratory effort Auscultation: clear to auscultation bilaterally Cardio: Rate: regular rate Rhythm: regular rhythm GI: GI Palp: Yes Soft to palpation Auscultation: normal bowel sounds Skin: Other: Left calf surrounding erythema is improving. Cream colored thick drainage. Neuro: Speech: normal speech Extrem: Other: Grossly normal except for left calf cellulitis Psych: Mental Status: mental status grossly normal Affect: normal affect Objective Data Vital Signs Vital Signs: Vital Signs - 24 hr 06/15/24 14:00 06/15/24 21:25 06/15/24 20:00 Temperature 97.0 F L 98.4 F Pulse Rate 90 84 Respiratory Rate 18 20 Blood Pressure 134/73 138/67 Pulse Oximetry 100 100 Oxygen Delivery Room Air 06/16/24 04:25 Temperature 98.6 F Pulse Rate 76 Respiratory Rate 20 Blood Pressure 141/82 H Pulse Oximetry 100 Oxygen Delivery Intake/Output Intake/Output: Intake & Output 06/13/24 06/14/24 06/15/24 06/16/24 23:59 23:59 23:59 23:59 Intake Total 3526 3751.7 1818 Balance 3526 3751.7 1818 Meds/Results Medications: Active Medications Generic Name Dose Route Start Last Admin Trade Name Freq PRN Reason Stop Dose Admin Acetaminophen 650 mg 06/14/24 04:09 06/16/24 05:52 Acetaminophen 325 Mg Tablet PO 650 mg Q4H PRN Administration Mild Pain (1-3) or Fever Heparin Sodium (Porcine) 5,000 units 06/14/24 09:00 06/16/24 09:21 Heparin Sodium 5,000 Units/Ml Vial SUB-Q 5,000 units Q12HR JULIANO Administration Ampicillin Sodium/Sulbactam Sodium 3 gm in 100 mls @ 200 mls/hr 06/14/24 12:00 06/16/24 05:43 Unasyn 3 Gm/Ns 100 Ml IVPB Infused Q6HR JULIANO Infusion Sodium Chloride 1,000 mls @ 100 mls/hr 06/14/24 05:25 06/15/24 21:25 Normal Saline Iv IV CONT Not Given .Q10H JULIANO Vancomycin HCl 1,500 mg in 500 mls @ 250 mls/hr 06/14/24 07:00 06/16/24 08:56 Vancomycin 1,500 Mg/Ns 500 Ml IVPB 250 mls/hr Q12H JULIANO Administration Radiology Results: ITS Impressions Knee X-Ray 06/14/24 07:41 Impression: Soft tissue laceration of the posterior aspect of the knee. Bipartite patella. Lower Extremity CT 06/15/24 08:47 IMPRESSION: 1. Laceration posterior to the knee with associated soft tissue edema. No well- defined abscess. Labs Labs: Laboratory Results - last 24 hr 06/15/24 06/16/24 19:55 05:54 WBC 7.6 RBC 3.56 L Hgb 10.5 L Hct 33.8 L MCV 94.9 MCH 29.5 MCHC 31.1 L RDW 12.8 Plt Count 308 MPV 8.6 Immature Gran % (Auto) 0.4 Neut % (Auto) 53.2 Lymph % (Auto) 33.9 [place] % (Auto) 8.8 H Eos % (Auto) 3.3 Baso % (Auto) 0.4 Lymph # (Auto) 2.58 [place] # (Auto) 0.7 H Eos # (Auto) 0.3 Baso # (Auto) 0.0 Abs Immat Gran (auto) 0.03 Absolute Neuts (auto) 4.1 Absolute Nucleated RBC 0.000 Nucleated RBC % 0.0 Sodium 135 L Potassium 4.3 Chloride 107 Carbon Dioxide 28 Anion Gap 0 L BUN 11 Creatinine 0.50 L Estim Creat Clear Calc 118 Estimated GFR > 60 Glucose 100 Calcium 8.3 L Total Bilirubin 0.3 AST 39 H ALT 34 Alkaline Phosphatase 67 Total Protein 6.0 L Albumin 2.9 L Vancomycin Trough 9.8 L Quality VTE Prophylaxis VTE prophylaxis: mechanical ordered and pharmacologic ordered
[2024-06-16 14:00] VITALS: BP 129/79; PULSE 70; RESP 20; TEMP 36.4; O2SAT 99
[2024-06-16] MEDS: polyethylene glycoL 3350 17 GM POWD.PACK PO (14:03)
[2024-06-16] MEDS: KETOROLAC 30 MG/ML VIAL (*BKC) IV PUSH (14:06)
[2024-06-16] MEDS: SODIUM CHLORIDE 0.9% IV 1,000 ML 100 ML IV CONT (18:56)
[2024-06-16 20:00] VITALS: PULSE 70; RESP 20; O2SAT 99
[2024-06-16 20:35] LABS: Vancomycin Trough 8.3 ug/mL (10.0-20.0)
[2024-06-16 21:20] VITALS: BP 134/80; PULSE 76; RESP 20; TEMP 36.1; O2SAT 100
[2024-06-17] MEDS: VANCOMYCIN 1,500 MG/NS 500 ML 1,500 MG/500 ML BAG 250 MG IVPB ×2 (04:43→15:45)
[2024-06-17 05:10] VITALS: BP 147/79; PULSE 69; RESP 18; TEMP 36.1; O2SAT 99
[2024-06-17] MEDS: AMPICILLIN SULB 3 GM/NS 100 ML 3 GM/100 ML VIAL IVPB ×4 (06:57→23:00)
[2024-06-17 07:03] LABS: Basophils Percent Auto 0.4 % (0.2-1.2); Eosinophils Absolute Auto 0.3 K/mm3 (0-0.3); Eosinophils Percent Auto 3.6 % (0-4.4); Hematocrit 34.1 % (37.0-47.0); Hemoglobin 10.9 g/dL (12.0-15.0); Immature Granulocyte Absolute 0.03 K/mm3 (0.00-0.031); Immature Granulocyte Percent A 0.4 % (0-0.5); Lymphocytes Absolute Auto 2.08 K/mm3 (0.9-3.2); Lymphocytes Percent Auto 29.8 % (18.3-44.2); Mean Corpuscular Hemoglobin 29.7 pg (26-34); Mean Corpuscular Volume 92.9 fl (80-100); Mean Platelet Volume 8.5 fl (7.4-10.4); Monocytes Absolute Auto 0.6 K/mm3 (0.1-0.6); Monocytes Percent Auto 8.6 % (2.6-8.5); Neutrophils Percent Auto 57.2 % (45.5-73.1); Platelet Count Result 309 k/mm3 (150-375); Red Blood Count 3.67 M/mm3 (4.2-5.4)
[2024-06-17 07:21] LABS: Alanine Aminotransferase 45 U/L (6-35); Albumin Level 2.9 g/dL (3.5-5.1); Alkaline Phosphatase 66 U/L (38-126); Anion Gap 1 mmol/L (4-12); Aspartate Amino Transferase 51 U/L (14-36); Bilirubin,Total 0.2 mg/dL (0.2-1.3); Blood Urea Nitrogen 9 mg/dL (7-17); Calcium 8.3 mg/dL (8.4-10.2); Carbon Dioxide 26 mmol/L (22-30); Chloride 108 mmol/L (98-107); Estimated CRCL calculation 118 ml/min; Estimated Glomerular Filt Rate > 60; Glucose 122 mg/dL (65-110); Sodium 135 mmol/L (137-145)
[2024-06-17] MEDS: HEPARIN SODIUM 5,000 UNITS/ML VIAL 5000 UNITS SUB-Q ×2 (10:03→22:00)
[2024-06-17] MEDS: polyethylene glycoL 3350 17 GM POWD.PACK PO (10:04)
--- NOTE | 2024-06-17 11:42 | P.PNIM_ITS ---
Progress Note: A&P Assessment and Plan (1) Dog bite of left lower leg with infection: Code(s): S81.852A - Open bite, left lower leg, initial encounter; L08.9 - Local infection of the skin and subcutaneous tissue, unspecified; W54.0XXA - Bitten by dog, initial encounter Status: Acute Assessment and Plan: * Ampicillin 3 gram IVPB q 6 and Vancomycin 1,500 mg IVPB q 12 * NS @ 100 ml/hr * Surgery consulted, no surgical intervention at this time. * CT of left LE with contrast showed Laceration posterior to the knee with associated soft tissue edema. No well-defined abscess. * Dressing changes packed the wound with quarter-inch iodoform and covered with 4 x 4 gauze and a Kerlix roll gauze. * Monitor labs * Blood culture no growth to date. * TDAP booster (2) Cellulitis of left lower extremity: Code(s): L03.116 - Cellulitis of left lower limb Status: Acute Assessment and Plan: * Ampicillin 3 gram IVPB q 6 and Vancomycin 1,500 mg IVPB q 12 * NS @ 100 ml/hr * Surgery consulted. * CT of left LE with contrast ordered Laceration posterior to the knee with associated soft tissue edema. No well-defined abscess. * Monitor labs (3) Homeless: Code(s): Z59.00 - Homelessness unspecified Status: Acute Assessment and Plan: * Care coordination consult. (4) Alcohol abuse: Code(s): F10.10 - Alcohol abuse, uncomplicated Status: Acute Assessment and Plan: * CIOH protocol. * Encourage abstinence. * fruit coordinator working with patient. Plan Acute and principal conditions 1. Left lower extremity cellulitis, post-dog bite 2. Dog bite 3. Elevated liver enzymes IVFs; Unasyn, Vancomycin Analgesia Tetanus booster General surgery consult Monitor liver function; Avoid hepatotoxins Chronic and stable conditions 1. Polysubstance dependence 2. Nicotine dependence. 3. Alcohol dependence 4. Hx of depression w/Anxiety. Poor compliance due to social issues Code status. Full Nutrition. Regular diet VTE prophylaxis. SCDs; JULIANO Subjective Date/time seen: 06/17/24 11:42 Interval history: Patient reports pain in left calf is a 8 , constant, and aching. Patient denies chest pain, palpitations, headache, dizziness, nausea, or vomiting. Nurse reported that Aunt from [facility] came to see patient, aunt spoke with care coordinat ion along with nurse. See there notes. Patient reports to drink Vodka daily. Review of Systems Review of Systems: All systems reviewed & are unremarkable except as noted in HPI and below Exam Const: General: no acute distress and uncomfortable Eyes: Sclera: sclerae normal Resp: Effort & Inspection: normal respiratory effort Auscultation: clear to auscultation bilaterally Cardio: Rate: regular rate Rhythm: regular rhythm GI: GI Palp: Yes Soft to palpation Auscultation: normal bowel sounds Skin: Wounds: wounds noted (Left calf surrounding erythema is improving. Cream colored thick drainage. ) Neuro: Speech: normal speech Extrem: Other: left calf cellulitis is improving. Psych: Mental Status: mental status grossly normal Affect: normal affect Objective Data Vital Signs Vital Signs: Vital Signs - 24 hr 06/16/24 14:00 06/16/24 20:00 06/16/24 21:20 Temperature 97.6 F 97 F L Pulse Rate 70 70 76 Respiratory Rate 20 20 20 Blood Pressure 129/79 134/80 Pulse Oximetry 99 99 100 Oxygen Delivery Room Air 06/17/24 05:10 Temperature 96.9 F L Pulse Rate 69 Respiratory Rate 18 Blood Pressure 147/79 H Pulse Oximetry 99 Oxygen Delivery Intake/Output Intake/Output: Intake & Output 06/14/24 06/15/24 06/16/24 06/17/24 23:59 23:59 23:59 23:59 Intake Total 3526 3751.7 4480 1931 Balance 3526 3751.7 4480 1931 Meds/Results Medications: Active Medications Generic Name Dose Route Start Last Admin Trade Name Freq PRN Reason Stop Dose Admin Acetaminophen 650 mg 06/14/24 04:09 06/16/24 21:41 Acetaminophen 325 Mg Tablet PO 650 mg Q4H PRN Administration Mild Pain (1-3) or Fever Heparin Sodium (Porcine) 5,000 units 06/14/24 09:00 06/17/24 10:03 Heparin Sodium 5,000 Units/Ml Vial SUB-Q 5,000 units Q12HR JULIANO Administration Ampicillin Sodium/Sulbactam Sodium 3 gm in 100 mls @ 200 mls/hr 06/14/24 12:00 06/17/24 07:27 Unasyn 3 Gm/Ns 100 Ml IVPB Infused Q6HR JULIANO Infusion Sodium Chloride 1,000 mls @ 100 mls/hr 06/14/24 05:25 06/16/24 18:56 Normal Saline Iv IV CONT 100 mls/hr .Q10H JULIANO Administration Vancomycin HCl 1,500 mg in 500 mls @ 250 mls/hr 06/16/24 21:00 06/17/24 06:43 Vancomycin 1,500 Mg/Ns 500 Ml IVPB Infused Q8H JULIANO Infusion Polyethylene Glycol 17 gm 06/16/24 10:50 06/17/24 10:04 Polyethylene Glycol 3350 17 Gm Powd.Pack PO 17 gm QAM JULIANO Administration Radiology Results: ITS Impressions Knee X-Ray 06/14/24 07:41 Impression: Soft tissue laceration of the posterior aspect of the knee. Bipartite patella. Lower Extremity CT 06/15/24 08:47 IMPRESSION: 1. Laceration posterior to the knee with associated soft tissue edema. No well- defined abscess. Labs Labs: Laboratory Results - last 24 hr 06/16/24 06/17/24 20:05 06:41 WBC 7.0 RBC 3.67 L Hgb 10.9 L Hct 34.1 L MCV 92.9 MCH 29.7 MCHC 32.0 RDW 13.0 Plt Count 309 MPV 8.5 Immature Gran % (Auto) 0.4 Neut % (Auto) 57.2 Lymph % (Auto) 29.8 [place] % (Auto) 8.6 H Eos % (Auto) 3.6 Baso % (Auto) 0.4 Lymph # (Auto) 2.08 [place] # (Auto) 0.6 Eos # (Auto) 0.3 Baso # (Auto) 0.0 Abs Immat Gran (auto) 0.03 Absolute Neuts (auto) 4.0 Absolute Nucleated RBC 0.000 Nucleated RBC % 0.0 Sodium 135 L Potassium 4.0 Chloride 108 H Carbon Dioxide 26 Anion Gap 1 L BUN 9 Creatinine 0.50 L Estim Creat Clear Calc 118 Estimated GFR > 60 Glucose 122 H Calcium 8.3 L Total Bilirubin 0.2 AST 51 H ALT 45 H Alkaline Phosphatase 66 Total Protein 6.0 L Albumin 2.9 L Vancomycin Trough 8.3 L Quality VTE Prophylaxis VTE prophylaxis: pharmacologic ordered
[2024-06-17] MEDS: BISACODYL 5 MG TABLET EC PO (13:09)
[2024-06-17] MEDS: ACETAMINOPHEN 325 MG TABLET 650 MG PO ×3 (13:10→22:59)
[2024-06-17 14:00] VITALS: BP 131/78; PULSE 71; RESP 20; TEMP 36.3; O2SAT 99
[2024-06-17] MEDS: SODIUM CHLORIDE 0.9% IV 1,000 ML 100 ML IV CONT ×2 (15:45→15:57)
[2024-06-17] MEDS: chlordiazePOXIDE (*CRX) 25 MG CAPSULE PO ×2 (16:40→22:59)
[2024-06-17 20:00] VITALS: BP 130/69; PULSE 70; RESP 18; O2SAT 99
[2024-06-17 20:55] LABS: Vancomycin Trough 17.5 ug/mL (10.0-20.0)
[2024-06-17 21:31] VITALS: BP 130/69; PULSE 70; RESP 18; TEMP 36.3; O2SAT 99
[2024-06-18] VITALS: BP 130/69; PULSE 70
[2024-06-18] MEDS: VANCOMYCIN 1,250 MG/NS 250 ML 1,250 MG/250 ML BAG 125 MG IVPB ×2 (00:12→08:00)
[2024-06-18 02:01] LABS: Glucose Point of Care 110 mg/dl (65-105)
[2024-06-18 04:00] VITALS: BP 130/69; PULSE 70
[2024-06-18] MEDS: AMPICILLIN SULB 3 GM/NS 100 ML 3 GM/100 ML VIAL IVPB ×4 (05:16→23:45)
[2024-06-18] MEDS: ACETAMINOPHEN 325 MG TABLET 650 MG PO ×3 (05:17→20:46)
[2024-06-18 06:00] VITALS: BP 134/69; PULSE 70; RESP 16; TEMP 36.2; O2SAT 99
[2024-06-18 07:41] LABS: Basophils Percent Auto 0.5 % (0.2-1.2); Eosinophils Absolute Auto 0.2 K/mm3 (0-0.3); Eosinophils Percent Auto 3.7 % (0-4.4); Hematocrit 33.8 % (37.0-47.0); Hemoglobin 10.7 g/dL (12.0-15.0); Immature Granulocyte Absolute 0.03 K/mm3 (0.00-0.031); Immature Granulocyte Percent A 0.5 % (0-0.5); Lymphocytes Absolute Auto 2.09 K/mm3 (0.9-3.2); Lymphocytes Percent Auto 34.9 % (18.3-44.2); Mean Corpuscular HGB Conc 31.7 g/dl (32-36); Mean Corpuscular Hemoglobin 29.6 pg (26-34); Mean Corpuscular Volume 93.6 fl (80-100); Monocytes Absolute Auto 0.6 K/mm3 (0.1-0.6); Monocytes Percent Auto 10.7 % (2.6-8.5); Neutrophils Percent Auto 49.7 % (45.5-73.1); Platelet Count Result 322 k/mm3 (150-375); Red Blood Count 3.61 M/mm3 (4.2-5.4); Red Cell Distribution Width 13.1 % (11.5-14.5)
[2024-06-18 07:49] LABS: Alanine Aminotransferase 66 U/L (6-35); Albumin Level 2.9 g/dL (3.5-5.1); Alkaline Phosphatase 61 U/L (38-126); Anion Gap 2 mmol/L (4-12); Aspartate Amino Transferase 78 U/L (14-36); Bilirubin,Total 0.2 mg/dL (0.2-1.3); Blood Urea Nitrogen 8 mg/dL (7-17); Calcium 8.2 mg/dL (8.4-10.2); Carbon Dioxide 25 mmol/L (22-30); Chloride 108 mmol/L (98-107); Estimated CRCL calculation 143 ml/min; Estimated Glomerular Filt Rate > 60; Glucose 110 mg/dL (65-110); Potassium 3.8 mmol/L (3.4-5.0); Sodium 135 mmol/L (137-145)
--- NOTE | 2024-06-18 10:43 | P.PNIM_ITS ---
Progress Note: A&P Assessment and Plan (1) Dog bite of left lower leg with infection: Code(s): S81.852A - Open bite, left lower leg, initial encounter; L08.9 - Local infection of the skin and subcutaneous tissue, unspecified; W54.0XXA - Bitten by dog, initial encounter Status: Acute Assessment and Plan: * Ampicillin 3 gram IVPB q 6 and Vancomycin 1,500 mg IVPB q 12 * NS @ 100 ml/hr * Surgery consulted, no surgical intervention at this time. * CT of left LE with contrast showed Laceration posterior to the knee with associated soft tissue edema. No well-defined abscess. * Dressing changes packed the wound with quarter-inch iodoform and covered with 4 x 4 gauze and a Kerlix roll gauze. * Monitor labs * Blood culture no growth to date. * TDAP booster (2) Cellulitis of left lower extremity: Code(s): L03.116 - Cellulitis of left lower limb Status: Acute Assessment and Plan: * Ampicillin 3 gram IVPB q 6 and Vancomycin 1,500 mg IVPB q 12 * NS @ 100 ml/hr * Surgery consulted. * CT of left LE with contrast ordered Laceration posterior to the knee with associated soft tissue edema. No well-defined abscess. * Monitor labs (3) Homeless: Code(s): Z59.00 - Homelessness unspecified Status: Acute Assessment and Plan: * Care coordination consult. (4) Alcohol abuse: Code(s): F10.10 - Alcohol abuse, uncomplicated Status: Acute Assessment and Plan: * CIMI protocol. * Encourage abstinence. * hospitality coordinator working with patient. Plan Acute and principal conditions 1. Left lower extremity cellulitis, post-dog bite 2. Dog bite 3. Elevated liver enzymes IVFs; Unasyn, Vancomycin Analgesia Tetanus booster General surgery consult Monitor liver function; Avoid hepatotoxins Chronic and stable conditions 1. Polysubstance dependence 2. Nicotine dependence. 3. Alcohol dependence 4. Hx of depression w/Anxiety. Poor compliance due to social issues Code status. Full Nutrition. Regular diet VTE prophylaxis. SCDs; JULIANO Subjective Date/time seen: 06/18/24 10:43 Interval history: Patient reports pain in left calf is a 8 , constant, and aching. Patient denies chest pain, palpitations, headache, dizziness, nausea, or vomiting. Review of Systems Review of Systems: All systems reviewed & are unremarkable except as noted in HPI and below Exam Const: General: no acute distress and uncomfortable Eyes: Sclera: sclerae normal Resp: Effort & Inspection: normal respiratory effort Auscultation: clear to auscultation bilaterally Cardio: Rate: regular rate Rhythm: regular rhythm GI: GI Palp: Yes Soft to palpation Auscultation: normal bowel sounds Skin: Other: Left calf surrounding erythema is improving. Cream colored thick drainage. Neuro: Speech: normal speech Extrem: Other: left calf cellulitis is improving. Psych: Mental Status: mental status grossly normal Affect: normal affect Objective Data Vital Signs Vital Signs: Vital Signs - 24 hr 06/17/24 14:00 06/17/24 21:31 06/17/24 20:00 Temperature 97.3 F L 97.3 F L Pulse Rate 71 70 Pulse Rate [Apical] 70 Respiratory Rate 20 18 Blood Pressure 131/78 130/69 130/69 Pulse Oximetry 99 99 Oxygen Delivery 06/17/24 20:00 06/18/24 00:00 06/18/24 04:00 Temperature Pulse Rate 70 Pulse Rate [Apical] 70 70 Respiratory Rate 18 Blood Pressure 130/69 130/69 Pulse Oximetry 99 Oxygen Delivery Room Air 06/18/24 06:00 06/18/24 08:00 Temperature 97.2 F L Pulse Rate 70 Pulse Rate [Apical] Respiratory Rate 16 Blood Pressure 134/69 Pulse Oximetry 99 Oxygen Delivery Room Air Intake/Output Intake/Output: Intake & Output 06/15/24 06/16/24 06/17/24 06/18/24 23:59 23:59 23:59 23:59 Intake Total 3751.7 4480 4639 1420 Balance 3751.7 4480 4639 1420 Meds/Results Medications: Active Medications Generic Name Dose Route Start Last Admin Trade Name Freq PRN Reason Stop Dose Admin Acetaminophen 650 mg 06/14/24 04:09 06/18/24 05:17 Acetaminophen 325 Mg Tablet PO 650 mg Q4H PRN Administration Mild Pain (1-3) or Fever Bisacodyl 5 mg 06/17/24 11:43 Bisacodyl 5 Mg Tablet Ec PO QAM PRN Constipation Chlordiazepoxide HCl 25 mg 06/17/24 16:03 06/17/24 22:59 Chlordiazepoxide (*Crx) 25 Mg Capsule PO 25 mg Q6H PRN Administration Withdrawal Heparin Sodium (Porcine) 5,000 units 06/14/24 09:00 06/17/24 22:00 Heparin Sodium 5,000 Units/Ml Vial SUB-Q 5,000 units Q12HR JULIANO Administration Ampicillin Sodium/Sulbactam Sodium 3 gm in 100 mls @ 200 mls/hr 06/14/24 12:00 06/18/24 05:46 Unasyn 3 Gm/Ns 100 Ml IVPB Infused Q6HR JULIANO Infusion Sodium Chloride 1,000 mls @ 100 mls/hr 06/14/24 05:25 06/18/24 09:33 Normal Saline Iv IV CONT Not Given .Q10H JULIANO Vancomycin HCl 1,250 mg in 250 mls @ 166.667 mls/hr 06/18/24 01:00 06/18/24 10:00 Vancomycin 1,250 Mg/Ns 250 Ml IVPB Infused Q8H JULIANO Infusion Polyethylene Glycol 17 gm 06/16/24 10:50 06/17/24 10:04 Polyethylene Glycol 3350 17 Gm Powd.Pack PO 17 gm QAM JULIANO Administration Radiology Results: ITS Impressions Knee X-Ray 06/14/24 07:41 Impression: Soft tissue laceration of the posterior aspect of the knee. Bipartite patella. Lower Extremity CT 06/15/24 08:47 IMPRESSION: 1. Laceration posterior to the knee with associated soft tissue edema. No well- defined abscess. Labs Labs: Laboratory Results - last 24 hr 06/17/24 06/18/24 06/18/24 20:27 01:58 06:49 WBC 6.0 RBC 3.61 L Hgb 10.7 L Hct 33.8 L MCV 93.6 MCH 29.6 MCHC 31.7 L RDW 13.1 Plt Count 322 MPV 9.0 Immature Gran % (Auto) 0.5 Neut % (Auto) 49.7 Lymph % (Auto) 34.9 [place] % (Auto) 10.7 H Eos % (Auto) 3.7 Baso % (Auto) 0.5 Lymph # (Auto) 2.09 [place] # (Auto) 0.6 Eos # (Auto) 0.2 Baso # (Auto) 0.0 Abs Immat Gran (auto) 0.03 Absolute Neuts (auto) 3.0 Absolute Nucleated RBC 0.000 Nucleated RBC % 0.0 Sodium 135 L Potassium 3.8 Chloride 108 H Carbon Dioxide 25 Anion Gap 2 L BUN 8 Creatinine 0.40 L Estim Creat Clear Calc 143 Estimated GFR > 60 Glucose 110 POC Capillary Glucose 110 H Calcium 8.2 L Total Bilirubin 0.2 AST 78 H ALT 66 H Alkaline Phosphatase 61 Total Protein 6.0 L Albumin 2.9 L Vancomycin Trough 17.5 Quality VTE Prophylaxis VTE prophylaxis: pharmacologic ordered
[2024-06-18] MEDS: SODIUM CHLORIDE 0.9% IV 1,000 ML 100 ML IV CONT (11:00)
[2024-06-18] MEDS: HEPARIN SODIUM 5,000 UNITS/ML VIAL 5000 UNITS SUB-Q ×2 (11:01→20:46)
[2024-06-18] MEDS: polyethylene glycoL 3350 17 GM POWD.PACK PO (11:01)
[2024-06-18 11:57] LABS: Glucose Point of Care 155 mg/dl (65-105)
[2024-06-18] MEDS: SENNA/DOCUSATE SODIUM TABLET 1 TAB PO ×2 (12:27→16:16)
[2024-06-18 14:00] VITALS: BP 128/74; PULSE 80; RESP 16; TEMP 36.8; O2SAT 99
[2024-06-18] MEDS: VANCOMYCIN 1,250 MG/NS 250 ML 1,250 MG/250 ML BAG 166.66 MG IVPB (16:17)
[2024-06-18] MEDS: chlordiazePOXIDE (*CRX) 25 MG CAPSULE PO ×2 (16:41→22:37)
--- NOTE | 2024-06-18 17:02 | PC.NURSE ---
Patient found agitated and upset loudly stating I just want to get out of here I can take care of this myself Patient upset stating she takes Suboxone 8mg TID and Zoloft that she gets from [facility] in [place]. Notified provider, Ngoc, and attempted to call [facility], the clinic is not open on weekends, will pass information along for possible verification of medication Wednesday. Updated patient on findings, she is currently in agreement to plan of care, continuing antibiotics staying here and given PO Librium. Tari Guerrero RN
[2024-06-18 17:47] LABS: Glucose Point of Care 101 mg/dl (65-105)
[2024-06-18 20:00] VITALS: BP 147/76; PULSE 70; PULSE 77; RESP 18; O2SAT 100
[2024-06-18 22:00] VITALS: BP 147/76; PULSE 77; RESP 18; TEMP 37.1; O2SAT 100
[2024-06-19] VITALS: BP 147/76; PULSE 70
[2024-06-19] MEDS: VANCOMYCIN 1,250 MG/NS 250 ML 1,250 MG/250 ML BAG 125 MG IVPB ×2 (00:50→09:16)
[2024-06-19 04:00] VITALS: BP 147/76; PULSE 70
[2024-06-19] MEDS: ACETAMINOPHEN 325 MG TABLET 650 MG PO (05:15)
[2024-06-19] MEDS: chlordiazePOXIDE (*CRX) 25 MG CAPSULE PO (05:15)
[2024-06-19] MEDS: AMPICILLIN SULB 3 GM/NS 100 ML 3 GM/100 ML VIAL IVPB (05:15)
[2024-06-19 05:25] LABS: Glucose Point of Care 113 mg/dl (65-105)
[2024-06-19 06:00] VITALS: BP 150/87; PULSE 69; RESP 14; TEMP 36.7; O2SAT 100
[2024-06-19 06:26] LABS: Basophils Absolute Auto 0.1 K/mm3 (0.0-0.1); Basophils Percent Auto 0.7 % (0.2-1.2); Eosinophils Absolute Auto 0.3 K/mm3 (0-0.3); Eosinophils Percent Auto 3.6 % (0-4.4); Hematocrit 34.9 % (37.0-47.0); Hemoglobin 10.8 g/dL (12.0-15.0); Immature Granulocyte Absolute 0.06 K/mm3 (0.00-0.031); Immature Granulocyte Percent A 0.8 % (0-0.5); Lymphocytes Absolute Auto 2.32 K/mm3 (0.9-3.2); Lymphocytes Percent Auto 32.4 % (18.3-44.2); Mean Corpuscular HGB Conc 30.9 g/dl (32-36); Mean Corpuscular Hemoglobin 29.3 pg (26-34); Mean Corpuscular Volume 94.8 fl (80-100); Mean Platelet Volume 8.6 fl (7.4-10.4); Monocytes Absolute Auto 0.6 K/mm3 (0.1-0.6); Monocytes Percent Auto 8.8 % (2.6-8.5); Neutrophils Absolute Auto 3.9 K/mm3 (1.3-6.7); Neutrophils Percent Auto 53.7 % (45.5-73.1); Platelet Count Result 302 k/mm3 (150-375); Red Blood Count 3.68 M/mm3 (4.2-5.4); Red Cell Distribution Width 13.2 % (11.5-14.5); White Blood Count 7.2 K/mm3 (4.5-10.0)
[2024-06-19 06:40] LABS: Alanine Aminotransferase 70 U/L (6-35); Albumin Level 3.1 g/dL (3.5-5.1); Alkaline Phosphatase 62 U/L (38-126); Anion Gap 3 mmol/L (4-12); Aspartate Amino Transferase 72 U/L (14-36); Bilirubin,Total 0.2 mg/dL (0.2-1.3); Blood Urea Nitrogen 8 mg/dL (7-17); Calcium 8.4 mg/dL (8.4-10.2); Carbon Dioxide 25 mmol/L (22-30); Chloride 107 mmol/L (98-107); Estimated CRCL calculation 118 ml/min; Estimated Glomerular Filt Rate > 60; Glucose 129 mg/dL (65-110); Potassium 3.9 mmol/L (3.4-5.0); Sodium 135 mmol/L (137-145)
[2024-06-19 08:00] VITALS: PULSE 69; PULSE 70; RESP 14; O2SAT 100
[2024-06-19] MEDS: SENNA/DOCUSATE SODIUM TABLET 1 TAB PO (08:27)
[2024-06-19] MEDS: polyethylene glycoL 3350 17 GM POWD.PACK PO (08:27)
[2024-06-19 08:53] LABS: Vancomycin Trough 13.1 ug/mL (10.0-20.0)
[2024-06-19] MEDS: HEPARIN SODIUM 5,000 UNITS/ML VIAL 5000 UNITS SUB-Q (09:16)
[2024-06-19 12:01] LABS: Barbiturate Screen Urine Negative (Negative); Benzodiazepines Screen Urine Positive (Negative)
[2024-06-19 12:10] LABS: Amphetamine Screen Urine Negative (Negative); Cannabinoid Screen Urine Negative (Negative); Cocaine Screen Urine Negative (Negative); Methadone Screen Urine Negative (Negative); Opiate Screen Urine Negative (Negative); Phencyclidine Screen Urine Negative (Negative)
[2024-06-19 12:15] LABS: HIV 1/2 Ab P24 Ag Result Negative (Negative)
[2024-06-19] MEDS: AMOXICILLIN/CLAVULANATE K 875-125 MG TAB 1 TABLET PO (12:21)
--- NOTE | 2024-06-19 12:29 | P.DS_ITS ---
DS: Admitting Diagnosis Discharge Date 06/19/2024 Admitting Diagnosis Dog bite DS: Discharge Diagnosis Discharge Diagnosis (1) Dog bite of left lower leg with infection: Code(s): S81.852A - Open bite, left lower leg, initial encounter; L08.9 - Local infection of the skin and subcutaneous tissue, unspecified; W54.0XXA - Bitten by dog, initial encounter Status: Acute (2) Polysubstance abuse: Code(s): F19.10 - Other psychoactive substance abuse, uncomplicated Status: Chronic (3) Homeless: Code(s): Z59.00 - Homelessness unspecified Status: Acute (4) Alcohol abuse: Code(s): F10.10 - Alcohol abuse, uncomplicated Status: Acute (5) Cellulitis of left lower extremity: Code(s): L03.116 - Cellulitis of left lower limb Status: Acute (6) Chlamydia: Code(s): A74.9 - Chlamydial infection, unspecified Status: Acute DS: Summary Hospital Course Hospital Course: * CT of left LE with contrast showed Laceration posterior to the knee with associated soft tissue edema. No well-defined abscess. Surgery followed and no surgery recommended * Dressing changes packed the wound with quarter-inch iodoform and covered with 4 x 4 gauze and a Kerlix roll gauze. Patient given a bag of supplies to take home with her. * Patient received IV antibiotics and transitioned to oral Augmentin 875-125 mg 1 tab PO q 12 and Doxycycline 100 mg PO q 12. Wound improved. * Spoke with Dr. Ramires regarding patient and he recommended starting patient on Zoloft 50 mg daily, patient declined to start and wanted to wait until she got reestablished with [facility]. Labs ordered and sent. Patient positive for C hlamydia and receiving Doxycycline. HIV, RPR, and gonorrhea negative. Patient homeless with social issues and drug abuse (patient reported using Fentanyl and Heroin). Aunt from [place] did come to see patient. See coordinator notes. * Patient states she has found a friend that she can go to stay with in [place]. * Care coordination and patient able to set up an appointment with [facility] tomorrow at 9 AM. * Patient given supplies for dressing changes and education on conditions. Patient also had JIM consult. Status at Discharge Functional status at discharge: independent ambulation Overall status at discharge: patient is progressing back to baseline Time Spent with Patient Time attestation: Total time spent providing and/or coordinating discharge services: Time spent: Greater than 30 minutes Exam Const: General: no acute distress and uncomfortable Other: Pain in right leg is a 3 , constant, and aching. Eyes: Sclera: sclerae normal Resp: Effort & Inspection: normal respiratory effort Auscultation: clear to auscultation bilaterally Cardio: Rate: regular rate Rhythm: regular rhythm GI: GI Palp: Yes Soft to palpation Auscultation: normal bowel sounds Skin: Other: Left calf surrounding erythema is improving. Cream colored thick drainage. Extrem: Other: left calf cellulitis is minimal Psych: Mental Status: mental status grossly normal Affect: normal affect DS: Data Data Completed and Pending Labs on day of discharge: Labs from last 24 hours 06/19/24 06/19/24 06/19/24 11:35 08:18 05:55 WBC 7.2 RBC 3.68 L Hgb 10.8 L Hct 34.9 L MCV 94.8 MCH 29.3 MCHC 30.9 L RDW 13.2 Plt Count 302 MPV 8.6 Immature Gran % (Auto) 0.8 H Neut % (Auto) 53.7 Lymph % (Auto) 32.4 [place] % (Auto) 8.8 H Eos % (Auto) 3.6 Baso % (Auto) 0.7 Lymph # (Auto) 2.32 [place] # (Auto) 0.6 Eos # (Auto) 0.3 Baso # (Auto) 0.1 Abs Immat Gran (auto) 0.06 H Absolute Neuts (auto) 3.9 Absolute Nucleated RBC 0.000 Nucleated RBC % 0.0 Sodium 135 L Potassium 3.9 Chloride 107 Carbon Dioxide 25 Anion Gap 3 L BUN 8 Creatinine 0.50 L Estim Creat Clear Calc 118 Estimated GFR > 60 Glucose 129 H POC Capillary Glucose Calcium 8.4 Total Bilirubin 0.2 AST 72 H ALT 70 H Alkaline Phosphatase 62 Total Protein 6.0 L Albumin 3.1 L TSH (Reflex) 3.740 Vancomycin Trough 13.1 Urine Opiates Screen Negative Urine Methadone Screen Negative Ur Barbiturates Screen Negative Ur Phencyclidine Scrn Negative Ur Amphetamine Screen Negative U Benzodiazepines Scrn Positive A Urine Cocaine Screen Negative U Cannabinoids Screen Negative RPR Pending C. trachomatis (PCR) Pending HIV 1&2 Ab/P24 Ag 4thGn Negative N. gonorrhoeae (PCR) Pending 06/19/24 06/18/24 05:15 17:44 WBC RBC Hgb Hct MCV MCH MCHC RDW Plt Count MPV Immature Gran % (Auto) Neut % (Auto) Lymph % (Auto) [place] % (Auto) Eos % (Auto) Baso % (Auto) Lymph # (Auto) [place] # (Auto) Eos # (Auto) Baso # (Auto) Abs Immat Gran (auto) Absolute Neuts (auto) Absolute Nucleated RBC Nucleated RBC % Sodium Potassium Chloride Carbon Dioxide Anion Gap BUN Creatinine Estim Creat Clear Calc Estimated GFR Glucose POC Capillary Glucose 113 H 101 Calcium Total Bilirubin AST ALT Alkaline Phosphatase Total Protein Albumin TSH (Reflex) Vancomycin Trough Urine Opiates Screen Urine Methadone Screen Ur Barbiturates Screen Ur Phencyclidine Scrn Ur Amphetamine Screen U Benzodiazepines Scrn Urine Cocaine Screen U Cannabinoids Screen RPR C. trachomatis (PCR) HIV 1&2 Ab/P24 Ag 4thGn N. gonorrhoeae (PCR) Preliminary micro results at discharge 06/14/24 03:23 Blood Culture - Preliminary Blood 06/14/24 03:23 Blood Culture - Preliminary Blood Discharge Plan Discharge Attending physician on discharge: Calvin Aquino Consulting providers: Anup Coker; Alfredo Ramires Discharging Clinician: Ngoc Connors Anticipated Discharge Date/Time: 06/19/24 14:00 Patient Disposition: Other Activity: may shower and as tolerated Diet: regular Wound Care Instructions: remove dressing to shower, change dressing daily and other - see discharge instructions Discharge Instructions: Wash wound on back of leg with soap and water daily 1. Lightly pack the wound with Iodoform ribbon gauze rope 2. cover with an ABD pad or large absorbent sanitary pad 3. wrap with gauze rolls *When you run out of ABD pads, the most cost effective pad is to buy Kotex or any off brand of sanitary pads. * You can find gauze rolls and tape at any local store in the first aid department. Keeping the wound clean, dry and covered at all times will help prevent infectio n. * Monitor dog bite area for redness, swelling, drainage change in color or odor, or fever. If you develop any notify provider. * Set up follow up appointment for [address] Pond family practive . * Get reestablished with [facility] * Take all doses of your antibiotics. Per Care Coordination: You have an appointment tomorrow 06/20 at 9:00am at [facility] [address], [place] [address] ? ) They will help you with multiple resources - housing, substance abuse, and a primary care doctor. Patient Instructions: Antibiotic Form, Chlamydia (GEN), Animal Bite (DC), Pain Management (DC), Polysubstance Use Disorder (DC), Alcohol Dependence (DC) Patient Language: Divehi Stand Alone Forms: General Discharge Information Follow-up/Referrals: Kemar Pond MD [Physician] - 1 Week Discharge Medications: New doxycycline hyclate 100 mg Tablet 100 mg PO Q12HR Qty: 13 0RF amoxicillin-pot clavulanate 875-125 mg tablet 1 tablet PO Q12H Qty: 14 0RF Date of admission: 06/16/24 13:05 Primary Care Provider: PHYSICIAN,FLAGSETTER Admitting Provider: Anirudh Phoenix Attending physician on admission: Anirudh Phoenix Condition: Stable Hospitalist MIPS Heart Failure (Exclusion) Patient has history of Heart Transplant or Left Ventricular Assistive Device?: No IF YES, STOP HERE Heart Failure (Qualifier) Patient has current or prior documentation of LVEF less than or equal to 40%, or mod/servere depressed LVSF?: No IF NO, STOP HERE
[2024-06-19 12:45] LABS: Rapid Plasma Reagin Non-Reactive (NonReactive)
[2024-06-19 13:13] LABS: Chlamydia trachomatis DETECTED (NOT DETECTE); Neisseria gonorrhoeae PCR NOT DETECTED (NOT DETECTE)
[2024-06-19] MEDS: DOXYCYCLINE HYCLATE 100 MG TABLET PO (14:21)
--- NOTE | 2024-06-19 14:22 | PC.NURSE ---
Wound care instructions with teach back provided to patient, able to demonstrate proper wound care on left leg. Patient provided with supplies for dresssing changes and packing dressing, discussed importance of taking antibiotics. Patient has no further questions at this time.
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
== END 2024-06-19 14:40 | disposition home or self-care (01) | DRG 351 ==
LOC: ANHED 06-14 04:22 → ANH3MEDSUR 06-14 05:28
PROVIDERS: Admitting Provider Internal Medicine; Emergency Provider Emergency Medicine; Visit Provider Nurse Practitioner Family
DX: S81.852A Open bite, left lower leg, initial encounter (principal); W54.0XXA Bitten by dog, initial encounter; L03.116 Cellulitis of left lower limb; Z59.00 Homelessness unspecified; F19.20 Other psychoactive substance dependence, uncomplicated; A74.9 Chlamydial infection, unspecified; F41.8 Other specified anxiety disorders; F17.210 Nicotine dependence, cigarettes, uncomplicated; F10.20 Alcohol dependence, uncomplicated; R74.8 Abnormal levels of other serum enzymes
CPT/HCPCS: 36415; 73562; 73701; 80053; 80202; 80307; 82948; 83605; 84443; 85025; 86592; 86703; 87040; 87491; 87591; 90471; 90715; 96365; 96366; 96367; 96374; 96375; 96376; 99212; 99285; A9270; G0378; G0432; G0463; J0295; J1644; J1885; J3370; J7030; Q9967

== ENCOUNTER 2024-07-07 13:27 | Emergency (ER) | payer SELFPAY ==
[2024-07-07 13:38] VITALS: BP 153/91; PULSE 94; RESP 18; TEMP 36.6; O2SAT 98
--- NOTE | 2024-07-07 13:50 | ED_ITS ---
HPI - General Adult General Chief complaint: Wound/Laceration Stated complaint: leg wound I never picked up my antibiotics Time Seen by Provider: 07/07/24 13:46 History of Present Illness HPI narrative: 43-year-old female presents to the emergency department for evaluation for a slowly healing wound to the back of her left knee. Patient reports around Thanksgiving she was bit by a pit bull on her right forearm and left leg. Patient states she never actually filled her antibiotic and patient does still have a healing wound on the posterior knee, other wounds are well appearing. Related Data Allergies Allergy/AdvReac Type Severity Reaction Status Date / Time No Known Allergies Allergy Verified 06/13/24 23:34 Review of Systems Review of Systems: All systems reviewed & are unremarkable except as noted in HPI and below PMFSH Past Medical History Medical History Polysubstance abuse Tobacco dependence Surgical History Surgical History History of hand surgery Family History Family History Other Unknown family medical history Social History Social History Smoking status: Current some day smoker Alcohol intake: current Other substance usage details: patient refused to answer Do You Feel Safe in your Home?: Yes Lack of Transportation: YES Lack of Food: Often True Current Housing: I Do Not Have Housing Concerned About Future Housing: YES Difficulty Paying Gas/Electric Bills: YES Difficulty Paying for Meds: YES Currently Unemployed: YES Education: High School Diploma/GED Difficulty w/ Childcare or Family Care: No Spiritual care concerns: No Exam Narrative: APPEARANCE: Well appearing, no pain, no distress, well-nourished. HEAD: normocephalic, atraumatic. EYES: PERRLA/EOMI, conjunctivae clear. NOSE: Normal no drainage EARS:TMS clear with good light reflex. THROAT: Pharynx clear, no exudate. NECK: Supple. No adenopathy, no masses. RESPIRATORY: Airway patent, respirations nonlabored. Clear to auscultation bilaterally, no rales, rhonchi, wheezing. CARDIOVASCULAR: Regular rate and rhythm without murmurs rubs or gallops. ABDOMINAL: Soft, nontender, nondistended, normal bowel sounds MUSCULOSKELETAL: Moves all extremities. Strength/ROM intact, No edema, No calf tenderness. NEURO: Alert. Cranial nerves II through XII intact. Good gait. Good coordination SKIN: Healing wound to left posterior knee with granulation tissue, no active bleeding, no purulence. Patient does report tenderness to palpation proximal to the healing wound. Course Course Emergency Course: Patient was discharged into police custody Vital Signs Vital signs: Vital Signs Temperature 97.9 F 07/07/24 13:38 Pulse Rate 94 07/07/24 13:38 Respiratory Rate 18 07/07/24 13:38 Blood Pressure 153/91 H 07/07/24 13:38 Pulse Oximetry 98 07/07/24 13:38 Temperature 97.9 F 07/07/24 13:38 Pulse Rate 94 07/07/24 13:38 Respiratory Rate 18 07/07/24 13:38 Blood Pressure 153/91 H 07/07/24 13:38 Pulse Oximetry 98 07/07/24 13:38 Medical Decision Making MDM Narrative Medical decision making narrative: 43-year-old female presents emergency department for evaluation for a slowly he aling dog bite. Patient will be started on her antibiotics. Patient was discharged to police custody. Vital Signs Vital Signs: Vital Signs Temperature 97.9 F 07/07/24 13:38 Pulse Rate 94 07/07/24 13:38 Respiratory Rate 18 07/07/24 13:38 Blood Pressure 153/91 H 07/07/24 13:38 Pulse Oximetry 98 07/07/24 13:38 Temperature 97.9 F 07/07/24 13:38 Pulse Rate 94 07/07/24 13:38 Respiratory Rate 18 07/07/24 13:38 Blood Pressure 153/91 H 07/07/24 13:38 Pulse Oximetry 98 07/07/24 13:38 Discharge Plan Discharge Clinical Impression: Dog bite Patient Disposition: Home, Self-Care Condition: Stable Instructions: Antibiotic Form, Chronic Wounds (ED) Additional Instructions: Antibiotics as directed until completed. Have close follow-up with your primary care physician. Patient Language: Lithuanian Prescriptions: New amoxicillin-pot clavulanate 875-125 mg tablet 1 tablet PO Q12H Qty: 14 0RF No Action doxycycline hyclate 100 mg Tablet 100 mg PO Q12HR Qty: 13 0RF amoxicillin-pot clavulanate 875-125 mg tablet 1 tablet PO Q12H Qty: 14 0RF Follow-up/Referrals: PHYSICIAN,HABITAT BIOLOGIST [Primary Care Provider] -
--- NOTE | 2024-07-07 13:51 | PC.NURSE ---
pt refusing to have me assess the left posterior thigh
== END 2024-07-07 14:13 | disposition home or self-care (01) ==
LOC: ANHED 13:55
PROVIDERS: Emergency Provider Emergency Medicine
DX: S81.052A Open bite, left knee, initial encounter (principal); W54.0XXA Bitten by dog, initial encounter; F17.200 Nicotine dependence, unspecified, uncomplicated
CPT/HCPCS: 99283